=== PATIENT | male | born 1960 | race Two or more races ===

== ENCOUNTER 2019-01-19 22:32 | Emergency (ER) | payer MEDICAID, OTHER ==
[~2019-01-19] VITALS: Ht 167.6 cm; Wt 78.0 kg
[2019-01-19 23:38] LABS: HEMATOCRIT. 36.5 % (42.0-52.0); HEMOGLOBIN. 12.9 g/dL (14.0-18.0); MEAN CORPUSCULAR HEMOGLOBIN 36.8 pg (28.0-32.0); MEAN CORPUSCULAR VOLUME 103.9 fL (80.0-94.0); MEAN PLATELET VOLUME 7.5 fl (7.4-10.4); PLATELET 250 x1000/uL (130-400); RED BLOOD CELL COUNT 3.51 mill/uL (4.7-6.1); RED CELL DISTRIBUTION WIDTH 17.6 % (11.6-14.6)
[2019-01-19 23:50] LABS: CHLORIDE 93 mEq/L (98-107)
[2019-01-20 02:05] LABS: PLATELET ESTIMATE NORMAL
[2019-01-20 03:26] VITALS: BP 132/85
== END 2019-01-20 04:20 | disposition home or self-care (01) ==
LOC: ER 22:32
DX: R53.1 Weakness (principal); R17 Unspecified jaundice; R42 Dizziness and giddiness; E11.9 Type 2 diabetes mellitus without complications; R94.5 Abnormal results of liver function studies; Z86.19 Personal history of other infectious and parasitic diseases
CPT/HCPCS: 36415; 71045; 82962; 83880; 84484; 93005; 99284

== ENCOUNTER 2019-06-27 10:48 | Inpatient (IN) | payer OTHER ==
[~2019-06-27] VITALS: Ht 165.1 cm; Wt 84.6 kg
[2019-06-27 12:30] LABS: BASOPHILS % 0.7 % (0.0-2.0); EOSINOPHILS % 0.9 % (0.0-5.0); HEMATOCRIT. 29.6 % (42.0-52.0); LYMPHOCYTES % 13.7 % (20.0-50.0); MEAN CORPUSCULAR HEMOGLOBIN 32.4 pg (28.0-32.0); MEAN CORPUSCULAR VOLUME 95.8 fL (80.0-94.0); MEAN PLATELET VOLUME 6.8 fl (7.4-10.4); MONOCYTES % 10.8 % (2.0-8.0); NEUTROPHILS % 73.9 % (40.0-76.0); PLATELET 328 x1000/uL (130-400); RED BLOOD CELL COUNT 3.09 mill/uL (4.7-6.1); RED CELL DISTRIBUTION WIDTH 16.4 % (11.6-14.6)
[2019-06-27 12:33] LABS: CHLORIDE 98 mEq/L (98-107)
[2019-06-27] MEDS ORDERED: FUROSEMIDE 40MG/4ML VIAL IVP ONE (13:00)
[2019-06-27] MEDS ORDERED: ACETAMINOPHEN 325MG TABLET PO PRN (14:00)
[2019-06-27] MEDS ORDERED: PANT40TA4 MT (14:37)
[2019-06-27] MEDS ORDERED: INSU100V37 SQ (14:37)
[2019-06-27] MEDS ORDERED: TERI2.4P SQ (14:37)
[2019-06-27] MEDS ORDERED: TRAM50TA3 MT (14:37)
[2019-06-27] MEDS ORDERED: ERGO500013 PO (14:37)
[2019-06-27] MEDS ORDERED: DICL100G16 TP (14:37)
[2019-06-27] MEDS ORDERED: NEPVIT MT (14:37)
[2019-06-27] MEDS ORDERED: RIFA550T MT (14:37)
[2019-06-27] MEDS ORDERED: LACT10SO6 PO (14:37)
[2019-06-27] MEDS ORDERED: CALC-586 PO (14:37)
[2019-06-27] MEDS ORDERED: SULF1TAB48 PO (14:37)
[2019-06-27] MEDS ORDERED: ONDA4TAB5 PO (14:37)
[2019-06-27] MEDS ORDERED: URSO250T11 MT (14:37)
[2019-06-27] MEDS ORDERED: CIPR500T25 MT (14:37)
[2019-06-27] MEDS ORDERED: PYRI50CA MT (14:37)
[2019-06-27 15:37] LABS: HEPATITIS B SURFACE ANTIGEN NEGATIVE
[2019-06-27 16:06] LABS: HEPATITIS A AB IGM NEGATIVE (NEGATIVE)
[2019-06-27] MEDS ORDERED: CLONIDINE 0.1MG TABLET PO PRN (16:15)
[2019-06-27] MEDS ORDERED: AMLODIPINE 2.5MG TABLET PO SCH (17:00)
[2019-06-27] MEDS ORDERED: ALBUMIN HUMAN 25GM/100ML (25%) IV NR (20:00)
[2019-06-27] MEDS ORDERED: NOREPINEPHRINE 4MG/250ML PMX 250 ML IV PRN (20:45)
[2019-06-28] VITALS (31 sets, daily range): BP systolic 62–134; BP diastolic 34–87
[2019-06-28] MEDS: ONDANSETRON HCL 4MG/2ML INJ IV PRN ×2 (01:49→13:49)
[2019-06-28] MEDS: TRAMADOL 50MG TABLET PO PRN ×2 (04:31→12:20)
[2019-06-28 06:25] LABS: BASOPHILS % 0.6 % (0.0-2.0); EOSINOPHILS % 2.3 % (0.0-5.0); HEMATOCRIT. 28.7 % (42.0-52.0); HEMOGLOBIN. 9.9 g/dL (14.0-18.0); LYMPHOCYTES % 21.3 % (20.0-50.0); MEAN CORPUSCULAR HEMOGLOBIN 32.2 pg (28.0-32.0); MEAN CORPUSCULAR VOLUME 93.5 fL (80.0-94.0); MEAN PLATELET VOLUME 6.7 fl (7.4-10.4); MONOCYTES % 9.5 % (2.0-8.0); NEUTROPHILS % 66.3 % (40.0-76.0); PLATELET 301 x1000/uL (130-400); RED BLOOD CELL COUNT 3.06 mill/uL (4.7-6.1); RED CELL DISTRIBUTION WIDTH 15.9 % (11.6-14.6)
[2019-06-28 06:35] LABS: CHLORIDE 96 mEq/L (98-107)
[2019-06-28 06:41] LABS: LDL CHOLESTEROL 87 mg/dL (5-100); TOTAL IRON BINDING CAPACITY 150 ug/dL (250-450)
[2019-06-28 06:43] LABS: HDL CHOLESTEROL 6 mg/dL (40-59)
[2019-06-28 06:46] LABS: CREATINE KINASE 65 IU/L (39-308); CREATINE KINASE MB FRACTION 5.8 ng/mL (0.5-3.6)
[2019-06-28 07:14] LABS: FERRITIN 1487 ng/mL (22-322)
[2019-06-28 09:42] LABS: FOLIC ACID (FOLATE) SERUM >20 ng/mL ng/mL (>5.38)
[2019-06-28 09:47] LABS: VITAMIN B12 SERUM 1915 pg/mL (211-911)
[2019-06-28] MEDS: LEVOFLOXACIN 500MG TABLET PO SCH (11:00)
[2019-06-28] MEDS ORDERED: NOREPINEPHRINE 4 MG in DEXT 5% WATER 246 ML IV PRN (16:00)
[2019-06-28] MEDS ORDERED: FUROSEMIDE 40MG/4ML VIAL IVP SCH (17:15)
[2019-06-28] MEDS ORDERED: SODIUM CHLORIDE 0.9% 250 ML IV ONE (18:30)
[2019-06-28] MEDS ORDERED: MAGNESIUM 2 G PREMIX 50 ML IV NR (20:00)
[2019-06-28] MEDS: ENOXAPARIN 40MG/0.4ML SYR SUBCUT SCH (20:19)
[2019-06-29] VITALS (90 sets, daily range): BP systolic 54–188; BP diastolic 23–152
[2019-06-29] MEDS: ONDANSETRON HCL 4MG/2ML INJ IV PRN ×3 (00:51→17:14)
[2019-06-29] MEDS: SULFAMETHOXAZOLE/TRIMETHOPRIM 800/160MG TABLET PO SCH ×3 (00:51→21:36)
[2019-06-29] MEDS: TRAMADOL 50MG TABLET PO PRN ×3 (01:16→23:05)
[2019-06-29] MEDS: NOREPINEPHRINE 4 MG in DEXT 5% WATER 246 ML IV PRN ×3 (03:12→19:11)
[2019-06-29 07:22] LABS: CHLORIDE 102 mEq/L (98-107)
[2019-06-29 07:31] LABS: BASOPHILS % 1.1 % (0.0-2.0); EOSINOPHILS % 0.6 % (0.0-5.0); HEMATOCRIT. 28.4 % (42.0-52.0); HEMOGLOBIN. 9.6 g/dL (14.0-18.0); LYMPHOCYTES % 13.7 % (20.0-50.0); MEAN CORPUSCULAR HEMOGLOBIN 32.7 pg (28.0-32.0); MEAN CORPUSCULAR VOLUME 97.1 fL (80.0-94.0); MEAN PLATELET VOLUME 7.1 fl (7.4-10.4); MONOCYTES % 9.5 % (2.0-8.0); NEUTROPHILS % 75.1 % (40.0-76.0); PLATELET 352 x1000/uL (130-400); RED BLOOD CELL COUNT 2.93 mill/uL (4.7-6.1); RED CELL DISTRIBUTION WIDTH 15.9 % (11.6-14.6)
[2019-06-29 09:49] LABS: BG BASE EXCESS -6.4 mmol/L (-2.0-2.0); BG CARBOXYHEMOGLOBIN 0.1 % (0.5-1.5); BG DEOXYHEMOGLOBIN 2.8 % (0.0-5.0); BG FRACTION INSPIRED OXYGEN 21; BG HCO3 ACT 16.2 mmol/L (22.0-26.0); BG METHEMOGLOBIN 0.3 % (0.0-1.5); BG OXYGEN SATURATION 97.2 % (92.0-98.5); BG OXYHEMOGLOBIN 96.8 % (94.0-97.0); BG PCO2 23.5 mmHg (35.0-45.0); BG PH 7.456 (7.350-7.450); BG PO2 98.6 mmHg (75.0-100.0); BG SAMPLE SITE RIGHT RADIAL; BG TOTAL HEMOGLOBIN 9.8 g/dL (12.0-18.0); BG VENT MODE ROOM AIR
[2019-06-29] MEDS ORDERED: SODIUM CHLORIDE 0.9% 1,000 ML IV SCH (10:30)
[2019-06-29] MEDS ORDERED: HEPARIN SODIUM 1,000 UNIT/1ML VIAL IV ONE (11:14)
[2019-06-29 13:28] LABS: INR 1.5; PROTHROMBIN TIME 14.8 sec (9.6-11.0)
[2019-06-29] MEDS: LEVOFLOXACIN 500MG TABLET PO SCH (13:41)
[2019-06-29] MEDS: PANTOPRAZOLE 40MG DR TABLET PO SCH (13:41)
[2019-06-29] MEDS ORDERED: LIDOCAINE HCL 1% 20ML VIAL (Pyxis) INJ ONE ×2 (14:09→15:01)
[2019-06-29] MEDS ORDERED: ASPIRIN/SOD BICARB/CITRIC ACID 324MG TAB EFF ONE (14:09)
[2019-06-29] MEDS ORDERED: IODIXANOL 320MG/ML 100 ML BOTTLE IV ONE (14:10)
[2019-06-29] MEDS ORDERED: IOHEXOL-300 100 ML BOTTLE ONE (14:13)
[2019-06-29] MEDS ORDERED: ACETAMINOPHEN 325MG TABLET PO PRN (15:30)
[2019-06-29] MEDS ORDERED: ATROPINE SULFATE 1MG/10ML SYR IV PRN (15:30)
[2019-06-29] MEDS: ENOXAPARIN 40MG/0.4ML SYR SUBCUT SCH (15:46)
[2019-06-29] MEDS: MORPHINE SULFATE 2 MG/ML CPJ (NOT FOR IM USE) IV PRN ×2 (17:19→20:19)
[2019-06-29] MEDS ORDERED: ONDANSETRON HCL 4MG/2ML INJ IV NR (18:45)
[2019-06-29 20:24] LABS: BG BASE EXCESS -11.6 mmol/L (-2.0-2.0); BG CARBOXYHEMOGLOBIN 0.9 % (0.5-1.5); BG DEOXYHEMOGLOBIN 2.3 % (0.0-5.0); BG FRACTION INSPIRED OXYGEN 28; BG HCO3 ACT 12.6 mmol/L (22.0-26.0); BG METHEMOGLOBIN 0.1 % (0.0-1.5); BG OXYGEN SATURATION 97.7 % (92.0-98.5); BG OXYHEMOGLOBIN 96.7 % (94.0-97.0); BG PCO2 24.8 mmHg (35.0-45.0); BG PH 7.325 (7.350-7.450); BG PO2 112.4 mmHg (75.0-100.0); BG SAMPLE SITE A-LINE; BG TOTAL HEMOGLOBIN 12.4 g/dL (12.0-18.0); BG VENT MODE NASAL CANNULA
[2019-06-30] VITALS (147 sets, daily range): BP systolic 36–276; BP diastolic -11–271
[2019-06-30] MEDS: MORPHINE SULFATE 2 MG/ML CPJ (NOT FOR IM USE) IV PRN ×2 (00:44→05:10)
[2019-06-30 06:13] LABS: BG BASE EXCESS -10.6 mmol/L (-2.0-2.0); BG CARBOXYHEMOGLOBIN 0.4 % (0.5-1.5); BG DEOXYHEMOGLOBIN 5.9 % (0.0-5.0); BG HCO3 ACT 15.6 mmol/L (22.0-26.0); BG METHEMOGLOBIN 0.3 % (0.0-1.5); BG OXYGEN SATURATION 94.1 % (92.0-98.5); BG OXYHEMOGLOBIN 93.4 % (94.0-97.0); BG PCO2 35.7 mmHg (35.0-45.0); BG PH 7.258 (7.350-7.450); BG PO2 82.1 mmHg (75.0-100.0); BG SAMPLE SITE A-LINE; BG TOTAL HEMOGLOBIN 9.2 g/dL (12.0-18.0); BG VENT MODE NASAL CANNULA
[2019-06-30] MEDS ORDERED: SODIUM BICARBONATE 8.4% 1 MEQ/ML 50ML SYR IV NR ×2 (06:45→16:30)
[2019-06-30] MEDS: PANTOPRAZOLE 40MG DR TABLET PO SCH (07:50)
[2019-06-30] MEDS ORDERED: FUROSEMIDE 40MG/4ML VIAL IVP SCH (08:30)
[2019-06-30] MEDS ORDERED: SODIUM BICARBONATE 8.4% 1 MEQ/ML 50ML SYR IV SCH (09:00)
[2019-06-30] MEDS ORDERED: FENTANYL CITRATE/PF 50MCG/ML 2ML VIAL IV SCH (09:30)
[2019-06-30] MEDS ORDERED: VANCOMYCIN 1500MG in DEXTROSE 5% WATER 250ML IV SCH (10:00)
[2019-06-30] MEDS ORDERED: PHENYLEPHRINE 10 MG in DEXT 5% WATER 249 ML IV PRN (10:00)
[2019-06-30 10:27] LABS: BG BASE EXCESS -6.6 mmol/L (-2.0-2.0); BG CARBOXYHEMOGLOBIN 0.2 % (0.5-1.5); BG DEOXYHEMOGLOBIN 13.3 % (0.0-5.0); BG HCO3 ACT 19.8 mmol/L (22.0-26.0); BG METHEMOGLOBIN 0.3 % (0.0-1.5); BG OXYGEN SATURATION 86.6 % (92.0-98.5); BG OXYHEMOGLOBIN 86.2 % (94.0-97.0); BG PCO2 43.8 mmHg (35.0-45.0); BG PH 7.274 (7.350-7.450); BG PO2 61.8 mmHg (75.0-100.0); BG SAMPLE SITE A-LINE; BG TIDAL VOLUME(mL) 500 mL; BG VENT MODE VENT - A/C; BG VENT RATE 12 set
[2019-06-30 10:54] LABS: HEMATOCRIT. 30.6 % (42.0-52.0); HEMOGLOBIN. 10.3 g/dL (14.0-18.0); MEAN CORPUSCULAR HEMOGLOBIN 31.6 pg (28.0-32.0); MEAN CORPUSCULAR VOLUME 94.2 fL (80.0-94.0); MEAN PLATELET VOLUME 7.5 fl (7.4-10.4); PLATELET 377 x1000/uL (130-400); RED BLOOD CELL COUNT 3.25 mill/uL (4.7-6.1); RED CELL DISTRIBUTION WIDTH 15.3 % (11.6-14.6)
[2019-06-30 10:56] LABS: CHLORIDE 99 mEq/L (98-107)
[2019-06-30] MEDS: NOREPINEPHRINE 4 MG in DEXT 5% WATER 246 ML IV PRN (11:20)
[2019-06-30] MEDS: FENTANYL CITRATE/PF 500 MCG in SODIUM CHLORIDE 0.9% 40 ML IV PRN (11:22)
[2019-06-30] MEDS: MIDAZOLAM HCL 100 MG in DEXT 5% WATER 80 ML IV PRN (11:23)
[2019-06-30] MEDS ORDERED: LIDOCAINE HCL 1% 20ML VIAL (Pyxis) INJ ONE ×2 (11:29→13:07)
[2019-06-30] MEDS ORDERED: SODIUM BICARBONATE 4% (2.4MEQ) 5ML VIAL IV ONE ×2 (11:29→13:07)
[2019-06-30 11:49] LABS: BG BASE EXCESS -6.2 mmol/L (-2.0-2.0); BG CARBOXYHEMOGLOBIN 0.1 % (0.5-1.5); BG DEOXYHEMOGLOBIN 4.9 % (0.0-5.0); BG FRACTION INSPIRED OXYGEN 100; BG HCO3 ACT 20.3 mmol/L (22.0-26.0); BG METHEMOGLOBIN 0.2 % (0.0-1.5); BG OXYGEN SATURATION 95.1 % (92.0-98.5); BG OXYHEMOGLOBIN 94.8 % (94.0-97.0); BG PCO2 44.8 mmHg (35.0-45.0); BG PH 7.275 (7.350-7.450); BG PO2 87.6 mmHg (75.0-100.0); BG SAMPLE SITE RIGHT BRACHIAL; BG TIDAL VOLUME(mL) 500 mL; BG TOTAL HEMOGLOBIN 10.2 g/dL (12.0-18.0); BG VENT MODE VENT - A/C; BG VENT RATE 16 set
[2019-06-30 12:41] LABS: PLATELET ESTIMATE NORMAL
[2019-06-30] MEDS ORDERED: DEXTROSE 50% WATER 50ML SYRINGE IV PRN (14:00)
[2019-06-30] MEDS: BLOOD SUGAR DIAGNOSTIC STRIP TEST SCH ×3 (14:00→20:53)
[2019-06-30] MEDS: PIPERACILLIN/TAZOBACTAM 3.375 G in DEXT 5% WATER 100 ML IV SCH ×2 (15:12→18:40)
[2019-06-30] MEDS: NOREPINEPHRINE 32 MG in DEXT 5% WATER 468 ML IV PRN (15:55)
[2019-06-30] MEDS: IPRATROPIUM/ALBUTEROL 0.5-3(2.5)MG/3ML NEB HHN SCH ×2 (16:20→20:42)
[2019-06-30] MEDS: ENOXAPARIN 40MG/0.4ML SYR SUBCUT SCH (16:30)
[2019-06-30 18:17] LABS: BG BASE EXCESS -2.7 mmol/L (-2.0-2.0); BG CARBOXYHEMOGLOBIN 0.3 % (0.5-1.5); BG DEOXYHEMOGLOBIN 2.3 % (0.0-5.0); BG HCO3 ACT 21.4 mmol/L (22.0-26.0); BG METHEMOGLOBIN 0.3 % (0.0-1.5); BG OXYGEN SATURATION 97.7 % (92.0-98.5); BG OXYHEMOGLOBIN 97.1 % (94.0-97.0); BG PCO2 34.5 mmHg (35.0-45.0); BG PH 7.411 (7.350-7.450); BG PO2 106.6 mmHg (75.0-100.0); BG SAMPLE SITE A-LINE; BG TIDAL VOLUME(mL) 500 mL; BG TOTAL HEMOGLOBIN 10.5 g/dL (12.0-18.0); BG VENT MODE VENT - A/C; BG VENT RATE 20 set
[2019-06-30] MEDS: VANCOMYCIN 1250MG in DEXTROSE 5% WATER 250ML IV SCH (20:51)
[2019-06-30] MEDS: PHENYLEPHRINE 40 MG in DEXT 5% WATER 496 ML IV PRN (21:27)
[2019-07-01] VITALS (77 sets, daily range): BP systolic 64–139; BP diastolic 36–89
[2019-07-01] MEDS: PIPERACILLIN/TAZOBACTAM 3.375 G in DEXT 5% WATER 100 ML IV SCH ×3 (00:01→12:21)
[2019-07-01] MEDS: IPRATROPIUM/ALBUTEROL 0.5-3(2.5)MG/3ML NEB HHN SCH ×3 (04:12→20:22)
[2019-07-01 05:28] LABS: HEMATOCRIT. 28.6 % (42.0-52.0); HEMOGLOBIN. 9.5 g/dL (14.0-18.0); MEAN CORPUSCULAR HEMOGLOBIN 31.2 pg (28.0-32.0); MEAN PLATELET VOLUME 7.1 fl (7.4-10.4); PLATELET 417 x1000/uL (130-400); RED BLOOD CELL COUNT 3.04 mill/uL (4.7-6.1); RED CELL DISTRIBUTION WIDTH 15.8 % (11.6-14.6)
[2019-07-01] MEDS: FENTANYL CITRATE/PF 500 MCG in SODIUM CHLORIDE 0.9% 40 ML IV PRN ×2 (06:01→14:01)
[2019-07-01] MEDS: MIDAZOLAM HCL 100 MG in DEXT 5% WATER 80 ML IV PRN ×2 (06:02→20:14)
[2019-07-01 06:45] LABS: PLATELET ESTIMATE SLIGHTLY INCREASED
[2019-07-01 06:54] LABS: CHLORIDE 89 mEq/L (98-107)
[2019-07-01 07:01] LABS: PHOSPHORUS 3.3 mg/dL (2.5-4.9)
[2019-07-01] MEDS: PANTOPRAZOLE 40MG DR TABLET PO SCH (07:50)
[2019-07-01] MEDS: BLOOD SUGAR DIAGNOSTIC STRIP TEST SCH ×4 (08:35→23:11)
[2019-07-01 08:41] LABS: BG BASE EXCESS -5.3 mmol/L (-2.0-2.0); BG CARBOXYHEMOGLOBIN 0.4 % (0.5-1.5); BG DEOXYHEMOGLOBIN 3.3 % (0.0-5.0); BG FRACTION INSPIRED OXYGEN 80; BG HCO3 ACT 18.2 mmol/L (22.0-26.0); BG METHEMOGLOBIN 0.2 % (0.0-1.5); BG OXYGEN SATURATION 96.7 % (92.0-98.5); BG OXYHEMOGLOBIN 96.1 % (94.0-97.0); BG PCO2 28.7 mmHg (35.0-45.0); BG PH 7.419 (7.350-7.450); BG PO2 85.1 mmHg (75.0-100.0); BG SAMPLE SITE A-LINE; BG TIDAL VOLUME(mL) 500 mL; BG TOTAL HEMOGLOBIN 10.9 g/dL (12.0-18.0); BG VENT MODE VENT - A/C; BG VENT RATE 20 set
[2019-07-01] MEDS: VANCOMYCIN 1250MG in DEXTROSE 5% WATER 250ML IV SCH (08:48)
[2019-07-01] MEDS ORDERED: EPINEPHRINE 1 MG in SODIUM CHLORIDE 0.9% 249 ML IV PRN (09:30)
[2019-07-01] MEDS: VASOPRESSIN 10 UNIT in SODIUM CHLORIDE 0.9% 99.5 ML IV PRN ×4 (09:39→22:45)
[2019-07-01] MEDS: PHENYLEPHRINE 40 MG in DEXT 5% WATER 496 ML IV PRN ×3 (09:42→22:31)
[2019-07-01] MEDS: IPRATROPIUM/ALBUTEROL 0.5-3(2.5)MG/3ML NEB HHN PRN ×2 (12:35→16:20)
[2019-07-01] MEDS ORDERED: MAGNESIUM 2 G PREMIX 50 ML IV NR (14:00)
[2019-07-01] MEDS ORDERED: DEXTROSE 50% WATER 50ML SYRINGE IV PRN (15:00)
[2019-07-01] MEDS: NOREPINEPHRINE 32 MG in DEXT 5% WATER 468 ML IV PRN (15:37)
[2019-07-01] MEDS: ENOXAPARIN 40MG/0.4ML SYR SUBCUT SCH (17:20)
[2019-07-01] MEDS: MEROPENEM 500 MG in SODIUM CHLORIDE 0.9% 50 ML IV SCH (17:20)
[2019-07-01] MEDS ORDERED: BLOOD SUGAR DIAGNOSTIC STRIP TEST SCH (17:50)
[2019-07-01] MEDS ORDERED: INSULIN LISPRO 100 UNITS/ML SUBCUT SCH (18:20)
[2019-07-01] MEDS: INSULIN LISPRO 100 UNITS/ML SUBCUT SCH ×2 (18:31→23:16)
[2019-07-02] VITALS (89 sets, daily range): BP systolic 11–160; BP diastolic 9–94
[2019-07-02] MEDS: PHENYLEPHRINE 40 MG in DEXT 5% WATER 496 ML IV PRN ×3 (02:52→10:18)
[2019-07-02] MEDS: VASOPRESSIN 10 UNIT in SODIUM CHLORIDE 0.9% 99.5 ML IV PRN ×4 (02:52→14:13)
[2019-07-02] MEDS: FENTANYL CITRATE/PF 500 MCG in SODIUM CHLORIDE 0.9% 40 ML IV PRN ×2 (02:53→13:20)
[2019-07-02] MEDS: IPRATROPIUM/ALBUTEROL 0.5-3(2.5)MG/3ML NEB HHN SCH ×3 (03:44→16:27)
[2019-07-02] MEDS: BLOOD SUGAR DIAGNOSTIC STRIP TEST SCH ×3 (06:26→17:43)
[2019-07-02] MEDS: INSULIN LISPRO 100 UNITS/ML SUBCUT SCH ×3 (06:29→17:43)
[2019-07-02 07:31] LABS: BASOPHILS % 0.9 % (0.0-2.0); EOSINOPHILS % 1.2 % (0.0-5.0); HEMATOCRIT. 29.4 % (42.0-52.0); HEMOGLOBIN. 10.1 g/dL (14.0-18.0); LYMPHOCYTES % 7.4 % (20.0-50.0); MEAN CORPUSCULAR HEMOGLOBIN 31.9 pg (28.0-32.0); MEAN CORPUSCULAR VOLUME 92.7 fL (80.0-94.0); MEAN PLATELET VOLUME 6.8 fl (7.4-10.4); MONOCYTES % 5.6 % (2.0-8.0); NEUTROPHILS % 84.9 % (40.0-76.0); PLATELET 369 x1000/uL (130-400); RED BLOOD CELL COUNT 3.18 mill/uL (4.7-6.1); RED CELL DISTRIBUTION WIDTH 15.7 % (11.6-14.6)
[2019-07-02 07:40] LABS: CHLORIDE 86 mEq/L (98-107)
[2019-07-02 08:09] LABS: PHOSPHORUS 4.3 mg/dL (2.5-4.9)
[2019-07-02] MEDS ORDERED: PANTOPRAZOLE SODIUM 40 MG/VIAL IV SCH (09:00)
[2019-07-02] MEDS ORDERED: SODIUM CHLORIDE 0.9% 1,000 ML IV SCH (09:15)
[2019-07-02] MEDS: NOREPINEPHRINE 32 MG in DEXT 5% WATER 468 ML IV PRN (09:54)
[2019-07-02] MEDS ORDERED: PHENYLEPHRINE 80 MG in DEXT 5% WATER 492 ML IV PRN ×2 (10:00→10:30)
[2019-07-02] MEDS: MIDAZOLAM HCL 100 MG in DEXT 5% WATER 80 ML IV PRN (10:39)
[2019-07-02 12:23] LABS: BG CARBOXYHEMOGLOBIN 0.4 % (0.5-1.5); BG DEOXYHEMOGLOBIN 0.3 % (0.0-5.0); BG FRACTION INSPIRED OXYGEN 80; BG HCO3 ACT 17.2 mmol/L (22.0-26.0); BG METHEMOGLOBIN 0.1 % (0.0-1.5); BG OXYGEN SATURATION 99.7 % (92.0-98.5); BG OXYHEMOGLOBIN 99.2 % (94.0-97.0); BG PCO2 30.4 mmHg (35.0-45.0); BG PH 7.371 (7.350-7.450); BG PO2 212.7 mmHg (75.0-100.0); BG SAMPLE SITE A-LINE; BG TIDAL VOLUME(mL) 500 mL; BG TOTAL HEMOGLOBIN 10.7 g/dL (12.0-18.0); BG VENT MODE VENT - A/C; BG VENT RATE 20 set
[2019-07-02] MEDS: MEROPENEM 500 MG in SODIUM CHLORIDE 0.9% 50 ML IV SCH (15:21)
[2019-07-02] MEDS ORDERED: MORPHINE SULFATE 250 MG in DEXT 5% WATER 240 ML IV PRN (16:15)
[2019-07-02] MEDS ORDERED: ENOXAPARIN 30MG/0.3ML SYR SUBCUT SCH (17:00)
== END 2019-07-02 20:40 | disposition expired | DRG 720 ==
LOC: ER 10:59 → EDBEDREQ 14:27 → EDBEDREQTM 14:27 → EDBEDREQSVC 14:27 → EDBEDREQTM 19:32 → CVICU 06-28 14:24 → ENRESERV 06-28 14:24
PROVIDERS: ADMIT Internal Medicine; ATTEND Internal Medicine
PROC: 5A09357 Assistance with Respiratory Ventilation, Less than 24 Consecutive Hours, Continuous Positive Airway Pressure (ICD-10-PCS; 2019-06-27)
PROC: 06HY33Z Insertion of Infusion Device into Lower Vein, Percutaneous Approach (ICD-10-PCS; 2019-06-28)
PROC: B54BZZA Ultrasonography of Right Lower Extremity Veins, Guidance (ICD-10-PCS; 2019-06-28)
PROC: 4A023N8 Measurement of Cardiac Sampling and Pressure, Bilateral, Percutaneous Approach (ICD-10-PCS; principal; 2019-06-29)
PROC: B2111ZZ Fluoroscopy of Multiple Coronary Arteries using Low Osmolar Contrast (ICD-10-PCS; 2019-06-29)
PROC: B2151ZZ Fluoroscopy of Left Heart using Low Osmolar Contrast (ICD-10-PCS; 2019-06-29)
PROC: 5A1945Z Respiratory Ventilation, 24-96 Consecutive Hours (ICD-10-PCS; 2019-06-30)
PROC: 0S9C3ZX Drainage of Right Knee Joint, Percutaneous Approach, Diagnostic (ICD-10-PCS; 2019-06-30)
PROC: 05HY33Z Insertion of Infusion Device into Upper Vein, Percutaneous Approach (ICD-10-PCS; 2019-06-30)
PROC: B54MZZA Ultrasonography of Right Upper Extremity Veins, Guidance (ICD-10-PCS; 2019-06-30)
PROC: 0BH17EZ Insertion of Endotracheal Airway into Trachea, Via Natural or Artificial Opening (ICD-10-PCS; 2019-06-30)
PROC: 5A09357 Assistance with Respiratory Ventilation, Less than 24 Consecutive Hours, Continuous Positive Airway Pressure (ICD-10-PCS; 2019-06-30)
DX: A41.9 Sepsis, unspecified organism (principal); J96.01 Acute respiratory failure with hypoxia; I21.9 Acute myocardial infarction, unspecified; I50.23 Acute on chronic systolic (congestive) heart failure; R65.21 Severe sepsis with septic shock; E44.1 Mild protein-calorie malnutrition; D68.9 Coagulation defect, unspecified; M00.9 Pyogenic arthritis, unspecified; N17.9 Acute kidney failure, unspecified; Z94.4 Liver transplant status; E87.1 Hypo-osmolality and hyponatremia; E87.2 Acidosis; I42.8 Other cardiomyopathies; E11.9 Type 2 diabetes mellitus without complications; D53.9 Nutritional anemia, unspecified; I11.0 Hypertensive heart disease with heart failure; K74.60 Unspecified cirrhosis of liver; K75.4 Autoimmune hepatitis; I27.21 Secondary pulmonary arterial hypertension; I47.1 Supraventricular tachycardia; K72.90 Hepatic failure, unspecified without coma; D17.79 Benign lipomatous neoplasm of other sites; M25.461 Effusion, right knee; I25.10 Atherosclerotic heart disease of native coronary artery without angina pectoris; Z66 Do not resuscitate; J98.11 Atelectasis; Z51.5 Encounter for palliative care; E66.9 Obesity, unspecified; Z68.31 Body mass index [BMI] 31.0-31.9, adult; Z79.4 Long term (current) use of insulin; Z79.899 Other long term (current) drug therapy
CPT/HCPCS: 20610; 20611; 31500; 36415; 36600; 71045; 73560; 74177; 76700; 76937; 78580; 80048; 80053; 80061; 80076; 80202; 82140; 82248; 82375; 82550; 82553; 82570; 82607; 82728; 82746; 82805; 82962; 83036; 83540; 83550; 83605; 83735; 83880; 83935; 84100; 84145; 84300; 84484; 85025; 85347; 85379; 85651; 86140; 86705; 86709; 86803; 87070; 87075; 87106; 87340; 87804; 93005; 93306; 93460; 93970; 94002; 94003; 94640; 94660; 99291; C1725; C1726; C1760; C1769; C1893; C9113; J1644; J1650; J1815; J1940; J2185; J2250; J2270; J2370; J2405; J2543; J3010; J3370; J3475; J3490; J7030; J7050; J7060; L1830; P9047; Q9967; A4315